=== PATIENT | female | born 2005 | race Caucasian/White ===

== ENCOUNTER 2025-06-02 08:10 | Emergency (ER) | payer OTHER, SELFPAY ==
[2025-06-02 08:26] VITALS: BP 132/105; PULSE 122; RESP 18; TEMP 36.7; O2SAT 97
--- NOTE | 2025-06-02 08:45 | ED_ITS ---
HPI - URI/Sore Throat General Chief Complaint: Upper Respiratory Infection Stated Complaint: SORE THROAT/CONGESTION/HEADACHE/SINUS/EARACHE History of Present Illness HPI Narrative: Chief Complaint Earache and dizziness. Patient Summary A 19-year-old adult presenting with symptoms of earache and congestion, leading to dizziness. History of Present Illness The patient has been experiencing symptoms since Wednesday, starting with a scratchy throat, likened to having swallowed a small box of nails. The sore throat subsided the following day, giving way to congestion, headache, and a mild earache. As of today, the sore throat is minimal, but the patient reports significant congestion and a worsening earache, leading to dizziness and imbalance. The patient has used Mucinex, both daytime and nighttime formulations, and a [facility] knockoff of Sudafed, but reports little relief. Th e patient has missed two days of work due to these symptoms. Social History - Recently moved into a new residence. - Work absence due to current illness. Family History Not discussed. Review of Systems - Reports sore throat, congestion, headache, earache, dizziness, and imbalance. - Reports using [id number] medications with little relief. - Reports difficulty sleeping due to drainage but has tried sleeping elevated. - Reports not having any significant medical history except a mention of a weird period thing. Vitals and Physical Exam findings Not available. Assessment The patient is likely experiencing an ear infection. Differential Diagnosis 1. Acute otitis media 2. Viral upper respiratory infection 3. Sinusitis Plan - Prescribe antibiotics for ear infection. - Recommend Claritin, Lala, or Zyrtec to address congestion and manage allergy symptoms. - Suggest Delsym (dextromethorphan) or Mucinex DM for cough relief. - Recommend use of Flonase for intranasal decongestion. - Advise Tylenol or ibuprofen for pain management. - Suggest continued use of Sudafed and consider adding an antihistamine for drainage. - Recommend a teaspoon of honey for natural cough relief. - Provide a work note for missed workdays. 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 Related Data Allergies Allergy/AdvReac Type Severity Reaction Status Date / Time No Known Allergies Allergy Verified 06/02/25 08:51 Review of Systems Review of Systems: All systems reviewed & are unremarkable except as noted in HPI and below Eyes: Eyes: Reports as per HPI ENT: Reports as per HPI Cardiovascular: Cardiovascular: Reports as per HPI Respiratory: Respiratory: Reports as per HPI Genitourinary: Genitourinary: Reports as per HPI Musculoskeletal: Musculoskeletal: Reports as per HPI Integumentary/Breasts: Skin/Breast: Reports as per HPI Neurologic: Reports as per HPI Psychiatric: Psychiatric: Reports as per HPI Endocrine: Endocrine: Reports as per HPI Hematologic/Lymphatic: Hematologic/Lymphatic: Reports as per HPI Allergic/Immunologic: Allergic/Immunologic: Reports as per HPI Exam Const: General: cooperative, healthy appearing, comfortable, no acute distress and well developed Orientation/consciousness: patient oriented x3 HENMT: Head: normal to inspection Ears: TM abnormal bulging on the left and erythematous on the left Eyes: General: appearance normal, both eyes and all related structures Resp: Effort & Inspection: normal respiratory effort and able to speak in complete sentences Auscultation: clear to auscultation bilaterally Cardio: Rate: regular rate Rhythm: regular rhythm Heart sounds: S1 normal heart sound present and S2 normal heart sound present Skin: General skin exam: normal color Neuro: General: patient oriented x3 Cognition (Neuro): normal cognition Speech: normal speech Psych: Mental Status: mental status grossly normal Course Course Level of Care: Express Care Visit Vital Signs Vital signs: Vital Signs Temperature 98.0 F 06/02/25 08:26 Pulse Rate 122 H 06/02/25 08:26 Respiratory Rate 18 06/02/25 08:26 Blood Pressure 132/105 H 06/02/25 08:26 Pulse Oximetry 97 06/02/25 08:26 Oxygen Delivery Room Air 06/02/25 08:26 Temperature 98.0 F 06/02/25 08:26 Pulse Rate 99 06/02/25 08:53 Respiratory Rate 18 06/02/25 08:53 Blood Pressure 133/94 H 06/02/25 08:53 Pulse Oximetry 98 06/02/25 08:53 Oxygen Delivery Room Air 06/02/25 08:53 MDM - URI/Sore Throat MDM Narrative Medical decision making narrative: Differential Diagnosis 1. Acute otitis media 2. Viral upper respiratory 3. sinusitis Left tympanic membrane with erythema and bulging consistent with acute otitis media. will treat with abx. Plan - Prescribe antibiotics for ear infection. - Recommend Claritin, Lala, or Zyrtec to address congestion and manage allergy symptoms. - Suggest Delsym (dextromethorphan) or Mucinex DM for cough relief. - Recommend use of Flonase for intranasal decongestion. - Advise Tylenol or ibuprofen for pain management. - Suggest continued use of Sudafed and consider adding an antihistamine for drainage. - Recommend a teaspoon of honey for natural cough relief. - Provide a work note for missed workdays. 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 Differential Diagnosis Differential diagnosis: Likely upper respiratory infection, otitis media, sinusitis and viral infection Medical Records Attestation: I reviewed the patient's medical records. Discharge Plan Discharge Clinical Impression: Sinusitis, Upper respiratory infection, Elevated blood pressure reading in office without diagnosis of hypertension Otitis media Qualifiers: Otitis media type: suppurative Chronicity: acute Laterality: left Recurrence: non-recurrent Spontaneous tympanic membrane rupture: without spontaneous rupture Qualified Code(s): H66.002 - Acute suppurative otitis media without spontaneous rupture of ear drum, left ear Patient Disposition: Home Condition: Stable Instructions: Antibiotic Form, Ear Infection (GEN) Additional Instructions: Your blood pressure is elevated today. It could be from the meds. when feeling better make sure to monitor at home and also follow up with your primary doctor. Elevated blood pressure can also make you feel dizzy at times to. The pseudoephedrine can raise your blood pressure. Patient Language: Arabic Prescriptions: New amoxicillin-pot clavulanate 875-125 mg tablet 1 tablet PO Q12H Qty: 20 0RF fluticasone propionate [24 Hour Allergy Relief] 50 mcg/actuation spray,suspension 2 spray intranasal DAILY Qty: 16 0RF Rx Instructions: administer into each nostril benzonatate 100 mg capsule 100 mg PO TID PRN (Reason: cough) Qty: 15 0RF Claritin-D 12 Hour 5-120 mg tablet extended release 12 hr 1 tablet PO BID Qty: 20 0RF Follow-up/Referrals: Stacy Feldman MD [Primary Care Provider, Pediatrics] Time of Disposition: 08:58
[2025-06-02 08:53] VITALS: BP 133/94; PULSE 99; RESP 18; O2SAT 98
== END 2025-06-02 09:37 | disposition home or self-care (01) ==
PROVIDERS: Emergency Provider Nurse Practitioner Family; PCP Pediatrics
DX: J02.9 Acute pharyngitis, unspecified (principal); J32.9 Chronic sinusitis, unspecified; J06.9 Acute upper respiratory infection, unspecified; R03.0 Elevated blood-pressure reading, without diagnosis of hypertension; H66.002 Acute suppurative otitis media without spontaneous rupture of ear drum, left ear
CPT/HCPCS: 99203; G0463